=== PATIENT | male | born 1940 | race Caucasian/White ===

== ENCOUNTER 2019-01-05 19:12 | Inpatient (IN) | payer OTHER ==
[~2019-01-05] VITALS: Wt 81.5 kg
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
[~2019-01-05 19:12] MED LIST: ADULT LOW DOSE81 MG PO; ARICEPT 5 MG TAB5 MG PO; AUGMENTIN 875-1 EACH PO; EXELON1 EACH; GLUCOPHAGE500 MG PO; HYDROCHLOROTH12.5 MG PO; K-DUR 20 MEQ T20 MEQ PO; KEPPRA 500 MG500 M1 PO; LEVAQUIN 500 M500 M2 PO; LISINOPRIL10 MG PO; LOPRESSOR50 PO; LUPIN; MULTIPLE VITAM1 EAC3 PO; NAMENDA 10 MG T10 MG PO; NORCO 10-325 T1 EACH PO; OMEGA-31000 MG PO; PLENDIL2.5 MG PO; PRINIVIL20 M1 PO; TRAZODONE HCL50 MG PO; VITAMIN D1000 UNI1 PO; ZOLOFT50 MG PO
[2019-01-05 19:19] VITALS: BP 122/54
[2019-01-05] MEDS ORDERED: COLACE100 MG PO (19:54)
[2019-01-05] MEDS ORDERED: ACETAMINOPHEN500 MG PO (19:54)
[2019-01-05] MEDS ORDERED: DEPAKOTE125 MG PO (19:55)
[2019-01-05] MEDS ORDERED: FELODIPINE 5 MG5 M1 PO (19:56)
[2019-01-05] MEDS ORDERED: ALEVE220 MG PO (19:58)
[2019-01-05] MEDS ORDERED: MIRALAX17 GM PO (19:58)
[2019-01-05] MEDS ORDERED: SEROQUEL 25 MG25 M1 PO (19:59)
[2019-01-05] MEDS ORDERED: TRAZODONE HCL50 MG PO (20:02)
[2019-01-05] MEDS ORDERED: TUMS PO (20:03)
[2019-01-05] MEDS ORDERED: ZYPREXA5 MG PO (20:06)
[2019-01-05 20:14] LABS: URINE BILIRUBIN NEGATIVE (Negative); URINE BLOOD NEGATIVE (Negative); URINE CLARITY CLEAR; URINE COLOR YELLOW; URINE GLUCOSE-RANDOM* NEGATIVE (Negative); URINE KETONES NEGATIVE (Negative); URINE LEUKOCYTES-REFLEX NEGATIVE (Negative); URINE NITRITE-REFLEX NEGATIVE (Negative); URINE PROTEIN (DIPSTICK) NEGATIVE (Negative); URINE SPECIFIC GRAVITY 1.025 (1.005-1.035)
[2019-01-05 20:14] LABS: ABSOLUTE NEUTROPHILS 6.1 thou/uL (1.4-8.2); BASOPHILS 0.3 % (0.0-2.0); HEMATOCRIT 39.4 % (42.0-52.0); HEMOGLOBIN 13.1 gm/dL (14.0-18.0); LYMPHOCYTES 21.2 % (24.0-44.0); MCH 31.9 pg (26.0-34.0); MCHC 33.3 g/dL (28.0-37.0); MCV 95.9 fL (80.0-100.0); MONOCYTES 8.9 % (1.0-8.0); PLATELET COUNT 172 thou/uL (150-400); POLYS 64.6 % (36.0-66.0); RBC 4.11 mil/uL (4.50-6.00); RDW 14.3 % (10.5-14.5); WBC 9.4 thou/uL (4.0-11.0)
[2019-01-05 20:21] LABS: ANION GAP 4 mmol/L (7-16); BUN 38 mg/dL (7-18); CALCIUM 8.8 mg/dL (8.5-10.1); CHLORIDE 108 mmol/L (98-107); CO2 31 mmol/L (21-32); CREATININE 1.2 mg/dL (0.7-1.3); GLUCOSE 114 mg/dL (74-106); POTASSIUM 4.3 mmol/L (3.5-5.1); SODIUM 143 mmol/L (136-145)
[2019-01-05 20:22] LABS: AMP/METHAMP Negative (Negative); BARBITURATES Negative (Negative); BENZODIAZEPINES Negative (Negative); COCAINE Negative (Negative); METHADONE Negative (Negative); OPIATES Negative (Negative); PCP Negative (Negative)
[2019-01-05 20:27] LABS: ALBUMIN 2.7 g/dL (3.4-5.0); DIRECT BILIRUBIN < 0.1 mg/dL (<0.1-0.3); SGOT 34 U/L (15-37); SGPT 40 U/L (30-65); TOTAL BILIRUBIN 0.2 mg/dL (<0.1-1.0); TOTAL PROTEIN 6.1 g/dL (6.4-8.2)
--- NOTE | 2019-01-05 20:44 | NUR ---
CALLED SENIOR BEHAVIORAL FLOOR TO LET THEM KNOW PT HAS BEEN CLEARED MEDICALLY AND IS READY FOR HIS PSYCH EVALUATION
[2019-01-05 21:47] VITALS: BP 115/47
--- NOTE | 2019-01-06 00:08 | NUR ---
PT ADMITTED THROUGH THE ED FROM [facility], WHERE HE HAS BEEN STAYING THE LAST 3 MONTHS. PRIOR TO THAT HE HAD BEEN LIVING AT HOME WITH HIS . HE WAS DIAGNOSED WITH DEMENTIA 2010. BECAME INCREASINGLY COMBATIVE WITH AND WENT TO [facility] FOR MEDICATION ADJUSTMENT, AND THEN WAS PLACED IN MEMORY CARE. SENT TO [facility] ED BECAUSE OF COMBATIVENESS THERE. UPON ARRIVAL ON UNIT WAS GENERALLY COOPERATIVE, BUT SOME PARANOIA ABOUT BEING TOUCHED. RESPONDED TO GENTLE REDIRECTION AND HAS BEEN ASLEEP SINCE 2300.
[2019-01-06 00:28] VITALS: BP 115/47
[2019-01-06 09:16] VITALS: BP 107/62
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
--- NOTE | 2019-01-06 19:10 | NUR ---
0800 Alert, sitting up in dining room. No s/o distress. Orientated to person. 1000 Attempting to give meds without success. Pt. states he wants to go home and will not take meds without his . After 45 min of refusing, called who said to tell him it was OK and to give them one by one as I had been trying. Wrote down medications and purpose without any success. Continued to attempt until 1045 when arrived and assisted. Pt. compliant. and daughter with appropriate questions. Walking around unit without s/o distress. 1200 Ate lunch without incident. No s/o distress. Now compliant with care and meds. 1400 Compliant with physical assessment. Alert and cooperative. Orietated to self only. Unable to assess SI/HI. Keeps speaking about buying a house and selling things. Confused. Pupils equal and reactive, wax room supervisor equal. Ambulating without diff. When he was getting up from bed he stated he was dizzy that resolved in seconds. Color pink with brisk cappilary refill and strong peripheral pulses. 1545 Continues to ambulate in halls without s/o distress. Flu shot not given d/t pt refusal and asked that we check with alf as they had just ordered it for him a couple of days prior to admission. 1630 Returned to unit and patient was outside quiet room with 2 security guards and multiple staff members. IM medication had been administered d/t agitation and agression. Led into quiet room by security. Compliant and confused. Sat on bed without s/o distress. Security and staff left room and he was compliant with simple directions. Requested glass of water and drank approximately 4 oz. Within 15 min was out in dining room eating dinner without s/o distress. 1830 Taking PO meds without difficulty. Compliant with requests. Incontinent of large brown soft stool in hallway.
[2019-01-06 19:32] VITALS: BP 88/38
[2019-01-06 19:42] VITALS: BP 120/56
[2019-01-06 19:44] VITALS: BP 120/56
--- NOTE | 2019-01-06 20:56 | NUR ---
PT ASLEEP IN BED UPON ARRIVAL TO UNIT. PT DID AWAKEN, STOOD UP AND URINATED ON BEDSIDE TABLE. PT THEN RETURNED TO BED. BED ALARM ON. PT TO SEDATED FOR HS MEDS. PT ANSWERED QUESTIONS BUT DID NOT OPEN EYES.
[2019-01-07 09:32] VITALS: BP 90/52
--- NOTE | 2019-01-07 14:02 | NUR ---
YOSHI attempted to complete Psychosocial assessment with Pt, however was unable to due to Pt impaired cognition. SW attempted to contact Pt , Oksana Driscoll, on cell and home number provide. Ysohi was unable to get a hold of Oksana and left a VM for a call back.
--- NOTE | 2019-01-07 14:47 | NUR ---
0800 Sleeping soundly without s/o distress. Awakens easily, compliant with assessment. Orientated to self. Pupils equal and reactive. Traffic Maintenance Supervisor equal. Ambulates to toilet without difficulty. Required direction with brushing teeth. Denies pain, SI/HI. Color pink with brisk capillary refill and palpable peripheral pulses. +1 non pitting edema in lower extremities. Breath sounds clear t/o, bilaterally equal. Active bowel sounds over soft, flat abdomen. Skin intact. 0930 Flat affect. Sitting at table with little interaction. Compliant with AM meds. 1130 ambulating with Bill in halls. Appropriate questions and concerns. No s/o distress. 1430 Remains compliant with cares and meds. Sitting in recliner with flat affect. Arouses easily. Shaved by PAINTER AND PAPERHANGER APPRENTICE. No s/o distress.
[2019-01-07 19:25] VITALS: BP 133/65
--- NOTE | 2019-01-07 22:58 | NUR ---
PT AWAKE AND SITTING IN CHAIR IN DAY ROOM, GOOD EYE CONTACT AND SMILING WHEN TALKING WITH STAFF DURING ASSESSMENT. STATED HE TAKES GOOD CARE OF HIS HEART. COMPLIANT WTIH MEDS AND ICE CREAM. BLE EDEMA REMAINS. STEADY GAIT, PT AWAKENED TIMES ONE IN THE MIDDLE OF THE NIGHT AND ASSISTED WITH URINATION. PT COOPEREATIVE WITH ADL CARES.
[2019-01-08 02:10] LABS: GLYCOHEMOGLOBIN (HGB A1C) 5.7 % (4.8-5.6)
[2019-01-08 09:38] VITALS: BP 133/79
[2019-01-08 19:54] VITALS: BP 120/70
[2019-01-08 20:38] VITALS: BP 153/77
--- NOTE | 2019-01-08 21:52 | NUR ---
PT SMILING SITTING IN DAY ROOM, COMPLIANT WITH MEDS AND HS SNACK. STEADY GAIT, GOOD EYE CONTACT. COMPLIANT WITH ADL CARES. PT GOT UP FROM BED X 3, USED RESTROOM, AND TAKEN TO DAY ROOM SINCE NOT TIRED. PT TALKING ABOUT FIXING LIGHTS, STRIPS, TAKING SHOTS. PT TALKING WITH MALE PEER IF THEY ARE WORKING ON A CONSTRUCTION RELATED PROJECT.
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
--- NOTE | 2019-01-09 01:05 | NUR ---
PT REMAINS RESTLESS, PACING, TALKING ABOUT WORK, GOING TO EVENTS, STANDING AND SITTING, ATTEMPTING TO TRUCK DRIVER'S OFFSIDER ITEMS FROM THE FLOOR, FOLLOWING STAFF AND PEER THAT ARE AWAKE. DR MELONY PARADA AND A ONE TIME HALDOL /ATIVAN ORDER OBTAINED.
--- NOTE | 2019-01-09 04:07 | NUR ---
Pt remained awake all night in day room talking with staff, clear speech, topics difficult to follow related to tree trimming, rats, shooting. Pt restless impulsive. flu vaccine given r delt.
--- NOTE | 2019-01-09 06:12 | NUR ---
PT DID NOT SLEEP AT ALL THROUGHOUT THE NIGHT BY 0430 PT DID BECOME LESS RESTLESS, HE REMAINED SITTING IN LOUNGE CHAIR, TALKING TO SELF RE WORK PROJECTS.
--- NOTE | 2019-01-09 14:48 | NUR ---
PATIENT WAS IN THE DAYROOM WHEN CARE ASSUMED, PATIENT TOOK ALL MORNING MEDICATION CRUSHED IN [place] WITHOUT DIFFICULTY. PATIENT ATE ABOUT 75% MEALS, PATIENT ATTEMPTING TO GET OUT OF CHAIR AND AMBULATE WITHOUT ASSISTANCE, GAIT VERY UNSTEADY. PATIENT IS A VERY HIGH FALL RISK. PATIENT IS TAKING INTERMITTENT SHORT NAPS. CAN BE RESTLESS AT TIMES, IMPULSIVE BEHAVIOR NOTED. PATIENT DENIES SUICIDAL/HOMICIDAL IDEATION. PATIENT NOT COGNITIVE ENOUGH TO RESPOND APPROPRIATELY TO FURTHER ASSESSMENT QUESTIONS. PATIENT HAD BOWEL MOVEMENT TTHIS MORNING. CURRENTLY IN DAY ROOM SITTING CALMLY. NO SIGN OF ACUTE DISTRESS NOTED, WILL CONTINUE TO REDIRECT, AND MONITOR FOR SAFETY.
[2019-01-09 17:24] VITALS: BP 109/61
[2019-01-09 20:39] VITALS: BP 120/80
--- NOTE | 2019-01-09 21:30 | NUR ---
PT ASLEEP IN CHAIR IN DAY ROOM UPON ARRIVAL TO SHIFT, PT WAS AROUSABLE FOR MEDICATIONS IN ICE CREAM. PT RESISTIVE TO HS ADL CARE, GRABBING, BUT ABLE TO BE REDIRECTED. PT HAS NOSE BAUTISTA ON TOP OF NOSE FROM GLASSES.
--- NOTE | 2019-01-10 06:34 | NUR ---
Family meeting with Dr. Reza, , daughter and Brother. Discussed medications and care while here. Also discussed the need for a high level of care at a nursing facility - may be a level II candidate in order for appropriate placement. Family in agreement with plan for moving forward.
[2019-01-10 08:54] VITALS: BP 149/82
--- NOTE | 2019-01-10 17:41 | NUR ---
Sleeping soundly without s/o distress. Compliant with assessment. Obeys simple commands, programming equipment operator equal. Orientated to self. Denies pain. Stood upright but gait very unsteady. Placed in w/c to go to dining room. Breath sounds clear t/o bilaterally equal. Color pink with brisk capillary refill and strong peripheral pulses +1 edema in lower extremities. Active bowel sounds over soft, flat abdomen. 1200 Sitting in dining room with eyes closed. Obeys simple commands. called to check on him. Ate 100% of lunch but needed to be fed. Brought to room to urinate, becoming combative so brought back to dining room. Continues to sit motionless with eyes closed at table. 1400 Ambulated to bathroom with assistance and direction. Medium brown stool per toilet with urine. Ambulated back to dining room. 1800 Up ambulating in halls. Gait sometimes slightly unsteady. Displaying more motion and some verbalizations. No s/o distress.
[2019-01-10 19:49] VITALS: BP 120/67
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
[2019-01-11 08:00] VITALS: BP 98/53
--- NOTE | 2019-01-11 08:00 | NUR ---
PT UP STANDING BY NURSES DESK. NIGHT NURSE STATED HE IS UNSTABLE WITH AMBULATION. PT WALKING AROUND UNIT, PT EYES HALF CLOSED. PT LOOKS TIRED. LUNGS CLEAR. PT STATED HE WAS AT [employer], DIDN'T KNOW MONTH, STATED IT LOOKS LIKE MICE. PT STAED HE WORKED AT [employer]. PT HALLUCINATING SEEING SUIT CASE, IT WAS A W/C. PT HAS SCABS TO ARMS.
[2019-01-11 09:23] VITALS: BP 98/53
--- NOTE | 2019-01-11 12:09 | NUR ---
PT HAS BEEN SLEEPING SINCE AFTER BREAFAST. PT SITTING IN CHAIR AND SHAKES HANDS AND ARMS AT PERIODS OF TIME. PT SITING IN CHAIR WITH EYES CLOSED. PT DIDN'T WANT TO WAKE UP FOR LUNCH.
--- NOTE | 2019-01-11 14:27 | NUR ---
WENT TO GIVE 1400 MED. PT ASLEEP IN BED.
[2019-01-11 19:31] VITALS: BP 126/65
--- NOTE | 2019-01-11 19:43 | NUR ---
assumed care of the pt at 1914 pm. alert et oriented x 2. the pt was in bed when this short story writer came on duty. heart rate regular. lungs clear bilaterally, +bs heard in all 4 quadrants. denies si/hi, anxiety and depression. denies racing thoughts and nightmares. remains on 12 minute checks for the pt's safety.
--- NOTE | 2019-01-12 04:00 | NUR ---
THE PT APPEARS TO BE SLEEPING AT THIS TIME. RESP., EVEN, AND UNLABORED. REMAINS ON 12 MINUTE CHECKS FOR HIS SAFETY.
--- NOTE | 2019-01-12 05:52 | NUR ---
THE PT SLEPT 8.4 HOURS LAST NIGHT.
[2019-01-12 10:49] VITALS: BP 113/60
--- NOTE | 2019-01-12 11:28 | NUR ---
PATIENT WAS AGITATED THIS MORNING. TOOK BREAKFAST TRAY AND REFUSED TO GIVE UP TO STAFF OR REDIRECT TO TABLE TO SIT DOWN. PATIENT NEEDED ALOT OF ENCOURAGEMENT TO GET HER TO SIT DOWN AND EAT. ONCE SITTING DOWN HE REFUSED TO EAT ANYTHING. ATTEMPTED NUMEROUS TIMES TO ADMINISTER MEDICATIONS IN APPLESAUCE AND REFUSED. NOT RESPONSIVE TO REDIRECTIONS AND STARED AT YOU BLANKLY WHEN QUESTIONED. SAT THROUGH GROUPS BUT STARED BLANKLY AND DID NOT PARTICIPATE. WILL CONTINUE TO ENCOURAGE MEAL AND MEDICATION COMPLIANCE FOR LUNCH AND DINNER.
--- NOTE | 2019-01-12 14:28 | NUR ---
Date of Admission: 01/05/19 Date of Activity Therapy Assessment: 01/08/19 Activity Goal: Increase reality orientation Initial Goal: 1 Group activity/day Weekly progress towards goal: Did not achieve goals Group participation level: None Behaviors observed: Patient is uncooperative and has not participated in group to date. He has sat on the outskirts at times, but does not actively engage. Plan: No change towards goal
[2019-01-12 19:16] VITALS: BP 111/59
[2019-01-12 19:36] VITALS: BP 145/69
--- NOTE | 2019-01-12 22:22 | NUR ---
ASSUMED CARE OF THE PT AT 1915 PM. THE PT WAS UP AND ABOUT THE WHOLE UNIT, SITTING IN THE DAYROOM WATCHING TV. ALERT ET ORIENTED X 2-3. WALKS WITH A SLOW STEADY GAIT. TOOK HIS HS MEDICATIONS WITHOUT ANY DIFFICULTY, HE TAKES HIS MEDICATION ONE AT A TIME WITH ORANGE JUICE. DENIES ANXIETY OR DEPRESSION. DENIES SI/HI. THE PT WALKED AROUND THE UNIT PACING PRIOR TO GOING TO BED. HEART RATE REGULAR, LUNGS CLEAR BILATERALLY, RESP., EVEN, AND UNLABORED. +BS HEARD IN ALL 4 QUADRANTS. +PP BILATERALLY. REMAINS ON 12 MINUTE CHECKS FOR HIS SAFETY.
--- NOTE | 2019-01-13 04:19 | NUR ---
THE PT GOT UP X 2 THIS NOC SHIFT, AND VOIDED IN THE BATHROOM EACH TIME. REMAINS ON 12 MINUTE CHECKS FOR HIS SAFETY.
[2019-01-13 09:31] VITALS: BP 120/66
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
--- NOTE | 2019-01-13 12:21 | NUR ---
YOSHI spoke with jaren HERNADEZ), and completed the [facility] intake , and that she would be available for a family meeting next week in the AM. She would be including pt's brother and sister and would call YOSHI with a date and time. She does expect this pt to return to [facility]. YOSHI will send updates
--- NOTE | 2019-01-13 15:10 | NUR ---
YOSHI called [facility] [phone] and left a VM to report that this pt would be ready to D/C on Tuesday. Will send updates to [phone] on Tuesday PM.
[2019-01-13 20:25] VITALS: BP 124/61
--- NOTE | 2019-01-13 23:36 | NUR ---
ASSUMED CARE OF PATIENT AT 1915, PATIENT WAS IRRITABLE AND DEMANDING AT THE NURSES STATION DURING REPORT, DEMANDING THAT STAFF PAY ATTENTION TO HIM IMMEDIATELY, STATING 'YOU ALL WONT HAVE ANY PAYCHECKS AND YOU BETTER PAY ATTENTION TO ME.' NURSING STAFF REDIRECTED PATIENT SUCCESSFULLY. THROUGHOUT THE EVENING HE NEEDED PROMPTS TO COMPLETE ADLS AND EAT A SNACK. EARLIER IN THE EVENING PATIENT URINATED ON THE FLOOR STATING 'IM JUST USING THE BATHROOM.' THIS NURSE REORIENTED PATIENT TO BATHROOM IN HIS ROOM. THIS NURSE COMPLETED ROUNDING AT APPROXIMATELY 2325 AND FOUND PATIENT IN BED WITH HIS ROOMMATE, THIS NURSE IMMEDIATELY ASSISTED PATIENT TO PROPER BED. HE DID NOT REPORT AND SUICIDAL THOUGHTS OR HOMICIDAL THOUGHTS, NO PHYSICAL AGGRESSION OBSERVED. HE DID NOT APPEAR TO BE IN ANY MEDICAL DISTRESS. NURSING WILL MAINTAIN ALL PRECAUTIONS TO ENSURE SAFETY AT ALL TIMES.
[2019-01-14 07:00] VITALS: BP 128/70
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
[2019-01-14 19:57] VITALS: BP 113/74
--- NOTE | 2019-01-14 21:50 | NUR ---
Care assumed of patient at 1915: Patient wandering about the hallway and patient rooms at start of shift. Patient alert and oriented to person only. Confused and forgetful. Patient took HS medication crushed this PM. Declined HS snack. Patient incontinent of bladder. Resistive to toileting hygiene but was not verbally or physically aggressive. Patient was able to retire to bed rather early without difficulty. No s/s of pain or discomfort observed. Patient was discussing concern about the wagon and that the wheels are rusted. Patient talking about the factory and needing to get enough supplies for the morning. Patient clearly delusional. Patient leaning over and picking at the floor, torres, siderails. Nothing visible to staff. Patient appears to be resting well at this time.
[2019-01-15 07:47] VITALS: BP 118/66
[2019-01-15 08:00] VITALS: BP 118/66
--- NOTE | 2019-01-15 08:18 | NUR ---
PT SLEEPING, EASILY AROUSED. PT DIDN'T WANT TO EAT BREAKFAST. PT DID HAVE FEW DRINKS OF HEALTH SHAKE. PT TOOK HALF OF MEDS CRUSHED, PT ABLE TO OPEN MOUTH FIRST TIME FOR MEDS, THEN STATED THATS ENOUGH. PT DID TAKE A FEW SMALL BITS OF MEDS. PT HAS EYES CLOSED. NO AGGRESSION SEEN WITH PROMPTING TO TAKE MEDS.
--- NOTE | 2019-01-15 08:54 | EKG ---
[address] [address] ELECTROCARDIOGRAM REPORT Name: DOT REBOLLEDO Room #: 518A-A ADM IN M.R.#: [id number] Admission: 01/05/19 Attend Phys: Juan Ramon Roman MD Discharge: Date of : 38 Report #: [id number] THIS REPORT FOR: //name// [facility] Test Date: 2019-01-14 Test Time: 16:04:36 Pat Name: DOT REBOLLEDO Department: Room: [facility] A Gender: M Director Of Development And Marketing: catia : 1940 Requested By: Johann Reza Order Number: [id number] MD: Robbin Sutherland Measurements Intervals Wana Rate: 67 P: GA: 142 QRS: 6 QRSD: 134 T: 56 QT: 441 QTc: 466 Interpretive Statements Atrial-paced rhythm Incomplete right bundle branch block No previous ECG available for comparison Electronically Signed On 01-15-2019 8:54:38 CDT by Robbin Sutherland [email or web address] <ELECTRONICALLY SIGNED> By: Robbin Sutherland MD, [facility] 01/15/19 0854 [id number] Robbin Sutherland MD, FACC /EPI
--- NOTE | 2019-01-15 14:30 | NUR ---
PT RESTING MOST OF DAY. PT DID GET UP TO WALK OVER TO RECLINER CHAIR THEN COUCH. PT STATED HE WANTED A PILLOW.
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
[2019-01-15 19:41] VITALS: BP 99/50
--- NOTE | 2019-01-16 02:14 | NUR ---
ASSUMED CARE OF PATIENT AT 1915January. PATIENT HAS BEEN IN THE DAY ROOM WITH EYES CLOSED IN A RECLINER THE MAJORITY OF THE EVENING. HE APPEARS WITH A TIRE AFFECT, BUT IS CALM AND COOPERATIVE AND SPONTANEOUSLY OPENS EYES TO THIS NURSE. HE APPEARS TO HAVE A SOMEWHAT UNSTEADY GAIT, NURSING STAFF SUPERVISED PATIENT WHILE AMBULATING. HE DOES NOT APPEAR TO BE IN DISTRESS, NOR DID PATIENT REPORT SI HI, ANY OVERT DELUSIONAL THOUGHTS, NOR S/S OF HALLUCINATIONS. HE DOES NOT APPEAR TO BE IN MEDICAL DISTRESS. NURSING WILL MAINTAIN ALL PRECAUTIONS TO ENSURE SAFETY AT ALL TIMES.
[2019-01-16 08:53] VITALS: BP 108/54
[2019-01-16 09:09] VITALS: BP 144/92
[2019-01-16 09:10] VITALS: BP 129/82
--- NOTE | 2019-01-16 15:11 | NUR ---
YOSHI called and spoke with pt's dght and confirmed that she would be discharging tonight at 4;30pm. YOSHI set up taxi for pickling operator. Reported this to nurse and Dr Reza. YOSHI also called DR Fletcher's office to confirm that she had a f/u appointment and had to leave a VM. This was also reported to pt.
--- NOTE | 2019-01-16 16:06 | NUR ---
Sleeping this AM without s/o distress. Able to ambulate to dining room without diff. Orientated to self but not to place, time or situation. Denies pain, SI. Able to perform AM cares with direction. Color pink with brisk capillary refill. +1 pedal edema. Reg HR auscultated. Breath sounds clear t/o, bilaterally equal. Active bowel sounds over soft, flat abdomen. Very sleepy after am meds. In recliner with blanket on him. and friend here visiting. Appropriate questions and concerns. wants to make appt with manager social this week. Msg given. 1600 Slept most of afternoon. Compliant with meds. Up ambulating in halls. Affect remains flat with some rambling speech. No s/o distress.
[2019-01-16 20:15] VITALS: BP 148/72
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
[2019-01-17 07:30] VITALS: BP 95/68
--- NOTE | 2019-01-17 08:21 | NUR ---
PT UP WALKING AROUND IN THE UNIT THIS AM. PT SITTING EATING BREAFAST. PT TOOK SOME PO MEDS. PT STATED THAT THE DEPAKOTE PILLS WAS TOO MUCH. PT REFUSED 1/2 OF DEPAKOTE PILLS. THIS NUT STEAMER OPENED SPRINKLES AND PUT IN ICE CREAM, PT TOOK ONE BITE AND STATED THAT HE WAS DONE.
--- NOTE | 2019-01-17 09:00 | NUR ---
PT TALKING ABOUT NEEDING HIS KEYS SO HE CAN DRIVE. PT KEEPS ASKING ABOUT HIS KEYS AND WERE ARE THEY, THIS IS WHEN PT GETS MORE DEMANDING TO FIND HIS KEYS.
--- NOTE | 2019-01-17 09:11 | NUR ---
OFFERED PT HALDOL PO AND PT REFUSED. PT STATED HE DIDN'T NEED IT AND HE WOULD TAKE IT IF HE NEEDED IT.
--- NOTE | 2019-01-17 09:11 | NUR ---
ADM HALDOL 6MG IM TO RT ARM. PT ASSISTED TO SITTING IN CHAIR AND DIDN'T RESIST SHOT.
--- NOTE | 2019-01-17 11:15 | NUR ---
PT UP WALKING OVER TO OTHER RESIDENTS. PT TRIED TO PUT FOOT UP ON ON'S LAP. PT DIDN'T HAVE BOUNDRY OF SPACE WITH OTHER RESIDENTS. GAVE PT SOME WATER AND ASSISTED PT TO COUCH.
--- NOTE | 2019-01-17 11:44 | NUR ---
PT HERE VISITING, PT SITTING QUIETLY WITH HER ON COUCH.
--- NOTE | 2019-01-17 17:14 | NUR ---
PT STILL APPEARS SLEEPY. PT EATING A LITTLE OF DINNER.
[2019-01-17 20:05] VITALS: BP 103/53
--- NOTE | 2019-01-17 23:32 | NUR ---
ASSUMED CARE @ 19:15 ON 01/17/19. LYING IN BED, EYES CLOSED, RESPIRATIONS EVEN AND UNLABORED. AWAKENED @ 20:30 AND TOILETED, MEDICATIONS GIVEN CRUSHED IN PUDDING, DEPAKOTE SPRINKLES OPENED AND MIXED IN PUDDING. RETURNED TO SLEEP. WILL CONTINUE TO MONITOR Q 12 MINUTES FOR PT SAFETY.
[2019-01-17 23:37] VITALS: BP 103/53
--- NOTE | 2019-01-18 06:01 | NUR ---
slept 10.8 hours overnight.
[2019-01-18 08:52] VITALS: BP 96/54
--- NOTE | 2019-01-18 13:30 | NUR ---
PATIENT REMAIN VERY CONFUSED, UP AND OUT ON THE UNIT, HE WANDERS. PATIENT TOOK ALL MEDICATION CRUSHED IN PUDDING THIS MORNING. HE IS EATING MEALS AND DRINKING FLUID WELL WITH CUE FROM STAFF. PATIENT DENIES SUICIDAL AND HOMICIDAL IDEATION. PATIENT IS NOT ABLE TO RESPOND APPRORIATELY TO FURTHER ASSESSMENT QUESTIONS DUE TO COGNITIVE IMPAIRMENT. PATIENT HAS BEEN CALM, COOPERATIVE WITH CARE. NO AGITATION, AGGRESSIVE BEHAVIOR NOTED, WILL MONITOR FOR SAFETY.
--- NOTE | 2019-01-18 14:09 | NUR ---
Date of Admission: 01/05/19 Date of Activity Therapy Assessment: 01/08/19 Activity Goal: Increase reality orientation and engagement Initial Goal: 1 Group activity/day Weekly progress towards goal: Did not achieve goals Group participation level: None Behaviors observed: Showing no change. Patient is uncooperative and has not participated in group to date. He has sat on the outskirts at times, but does not actively engage. Plan: No change towards goal. Offer 1:1 as tolerated.
--- NOTE | 2019-01-18 15:29 | NUR ---
YOSHI met with family and Dr Reza for a family meeting. Pt will likely d/c to [facility] on 01/22 or 01/23
[2019-01-18 20:00] VITALS: BP 105/54
--- NOTE | 2019-01-19 02:18 | NUR ---
ASSESSMENT: PT REMAIN ALERT TO SELF. PACING AROUND THE DAY ROOM WITHOUT PURPOSE. TOOK MEDS WELL CRUSHED IN ICE CREAM. DID NOT C/O PAIN. VSS, AFEBRILE. METOPROLOL WAS HELD PER PERIMETERS. TRAZODONE PRN GIVEN. SLOW PROGRESS TOWARDS DC GOALS, WILL CONTINUE TO MONITOR.
[2019-01-19 08:10] VITALS: BP 137/69
--- NOTE | 2019-01-19 15:53 | NUR ---
YOSHI sent updates to [facility]
--- NOTE | 2019-01-19 16:43 | NUR ---
HAS BEEN DROWSY MOST OF SHIFT-WILL HAVE OCCASSIONAL BRIEF EPISODES OF RESTLESSNESS,INCREASED CONFUSION AND PACING BUT IS REDIRECTABLE. GAIT SLOW/STEADY.SPEECH SLIGHLTY SLURRED. ORIENTED TO NAME ONLY STATING THIS LOCATION IS "HOUSE" AND UNABLE TO IDENITFY PREVIOUS EMPLOYMENT OR PROFESSION. VERBAL RESPONSES ARE BRIEF ABRUPT-DYSPHORIC,IRRITABLE MOOD. DENIES SI/SH. DID APPEAR UNKEMPT AT START OF SHIFT-CLOTHING SOILED,UNSHAVEN. DID ALLOW CLOTHING CHANGE AND SHAVE WITHOUT RESISTANCE. TAKES MEDS CRUSHED DENIES C/O PAIN/DISCOMFORT
--- NOTE | 2019-01-19 23:16 | NUR ---
ASSUMED CARE@ 19:15 ON 01/19/19, BECAME AGITATED AND PUSHED A PEER IN THE DAY ROOM. ORDER OBTAINED FOR ONE TIME STAT ORDER FOR HALOPERIDOL LACTATE 5 MG IM AND LORAZEPAM 1MG IM, BOTH GIVEN @19:11, ISOLATION ORDER OBTAINED AND PATIENT ISOLATED FOR APROXIMATELY 54 MINUTES, BEGINNING @ 19:10 UNTIL HE NO LONGER EXHIBITED VIOLENT BEHAVIOR, RETURNED TO HIS ROOM @ 20:06. HE SLEPT IN BED FOR SEVERAL HOURS, AND AMBULATED TO THE DAY ROOM X2 ASSIST WHERE HE SAT UP AND IS IN THE DAY ROOM AT THIS WRITING. WILL CONTINUE TO MONITOR Q 12 MINUTES FOR PATIENT SAFETY.
[2019-01-20 07:10] VITALS: BP 129/76
--- NOTE | 2019-01-20 07:20 | NUR ---
slept 2.6 hours overnight
[2019-01-20 08:30] VITALS: BP 129/76
--- NOTE | 2019-01-20 08:30 | NUR ---
PT NEEDED ASSIST WITH FEEDING. PT DIDN'T EAT MUCH FOR BREAFAST. PT DRANK 1/2 OF SHAKE. PT TOOK MEDS WHOLE THIS AM. PT LUNGS CLEAR. PT NOT AGGRESSIVE THIS AM.
--- NOTE | 2019-01-20 16:30 | NUR ---
PT HERE AND WANTING TO KNOW HOW HIS DAY WAS AND LAST TIME HE GOT AN INJECTION. PT NEEDING HELP WITH FEEDING AND DRINKING. PT SITTING MOSTLY TODAY WITH EYES CLOSED, WOULD OPEN WITH VERBAL STIMULATION.
--- NOTE | 2019-01-20 18:15 | NUR ---
ADM SEROQUEL 50MG PO X1 TIME.
[2019-01-20 19:45] VITALS: BP 102/51
--- NOTE | 2019-01-21 00:57 | NUR ---
ASSUMED CARE @ 19:15 ON 01/20/19. SITTING IN HIS W/C IN THE DAY ROOM WITH LAP ERIN AROUND WAIST. PT HAS EYES CLOSED, DOES NOT OPEN EYES, EVEN WHEN BEING SPOKEN TO AND RESPONDING. TAKES HS MEDS CRUSHED IN PUDDING. GIVEN PRN TYLENOL 650 FOR GENERAL PAIN AND TRAZADONE HCL 100 MG FOR SLEEP. PT PUT TO BED @ 21:30 X3 ASSIST. PT IS ASLEEP WITH EYES CLSOED, RESPIRATIONS EVEN AND UNLABORED. WILL CONTINUE TO MONITOR Q 12 MINUTES FOR PATIENT SAFETY.
--- NOTE | 2019-01-21 05:25 | NUR ---
SLEPT 7 HOURS OVERNIGHT.
[2019-01-21 07:37] VITALS: BP 117/66
[2019-01-21 10:01] VITALS: BP 132/65
--- NOTE | 2019-01-21 12:07 | NUR ---
ASSUMED CARE AT 0700 THIS MORNING. PT. SITTING ON THE UNIT WITH HIS EYES CLOSED. HE WOULD NOT WAKE UP TO TALK WITH STAFF. HE REFUSED TO OPEN HIS EYES OR HIS MOUTH AT BREAKFAST. HE DID NOT EAT BREAKFAST, THEREFORE. MEDS GIVEN CRUSHED AND IN ICE CREAM. HE DID NOT AWAKEN FOR MORNING GROUP. HIS VISITED AND WANTED AN UPDATE FOR THE PT. SHE WAS PROVIDED WITH THIS. AT LUNCH HE ATE A FEW BITES, BUT CONTINUED WITH EYES CLOSED, NOT RESPONDING TO STAFF.
[2019-01-21 19:43] VITALS: BP 126/44
--- NOTE | 2019-01-21 21:52 | NUR ---
PT ASLEEP IN W/C, CHAIR ALARM IN DAY ROOM AT BEGINNING OF SHIFT. PT COMPLIANT WTIH HS MEDS AND HS SNACK. PT RESISTIVE WITH ADL CARE AND TRANSFER, HTTING GRABBING KICKING. TENSE AFFECT EYES SHUT WHEN TALKING WITH STAFF AND DURING MED PASS AND ADL CARES. PT HAD BM.
[2019-01-22 09:20] VITALS: BP 122/65
[2019-01-22 19:15] VITALS: BP 115/92
--- NOTE | 2019-01-22 19:16 | NUR ---
RESTLESS AND AGITATED THROUGHOUT SHIFT, REFUSED TO GET UP FOR BREAKFAST AND WAS COMBATIVE WITH STAFF WITH ATTEMPTS-DID TAKE SNACK/SUPPLEMENTS AND AM MEDS AT APPROX 100 AND AMBULATED TO DAYROOM WITH ASSIST 2 STAFF GAIT VERY ATAXIC AND HAD SEVERAL NEAR FALLS. INCONTINENT OF BLADDER AT APPROX 1500-COMBATIVE WITH ATTEMPTS TO CHANGE BRIEF-REQUIRES SECURITY AND 4 STAFF TO CHANGE-GEODON 15MG IM GIVEN AT APPROX 1530. REMAINS COMBATIVE AND UNCOOPERATIVE-SPITTING OUT MEDS AND FLUIDS WHEN OFFERED.
--- NOTE | 2019-01-22 21:53 | NUR ---
PT IN W/C LAP BELT AND CHAIR ALARM IN DAY ROOM UPON ARRIVAL TO SHIFT. PT HAS EYES CLOSED AND IS PICKING AT THE AIR AND AT W/C. FLAT AFFECT, VERBALIZATIONS TO SELF ARE MUMBLED. PT IS LETHARGIC, TWO PERSON ASSIST WITH TRANSFER OUT OF W/C TO BED. INCONTINENT. COMPLIANT [facility] HS MEDS AND SNACK.
--- NOTE | 2019-01-23 06:00 | NUR ---
PT RESTLESS, RESISTIVE TO INCONTINENCE CARE AND ADL CARE. PT GRABBING AND ATTEMPTING TO STAND BUT NOT ABLE TO BEAR HIS OWN WEIGHT. WHEN IN W/C PT RUNNING HIS W/C INTO TABLES AND CHAIRS. PT NOT ABLE TO BE ENGAGED IN DISTRACTING CONVERSATION OR ACTIVITIES. PRN IM GIVEN.
[2019-01-23 09:01] VITALS: BP 116/52
--- NOTE | 2019-01-23 10:55 | NUR ---
Followup: KUB was cancelled. Will follow up again on 01/26
--- NOTE | 2019-01-23 11:41 | NUR ---
0702 report received from overnight shift, patient did not eat very much, trouble taking medication was spitting some out of his medication. patient had loose stools aweful smell. We had to call security for help to get patient cleaned up due to him being combative hitting and kicking. Patient had visit from who gave him 2 apple juice, i asked her not to give him anything else without consulting nursing staff.
--- NOTE | 2019-01-23 16:30 | NUR ---
LILIYA and Dr Reza spoke with pt's dght and KELVIN. Disucssed the plan of care and cnoncerns about nutrition and weight loss. The conclusion is that hospice will be ordered for eval and treat when he d/c to [facility]. Liliya sent this referral to [facility] per [facility] recomendations.
[2019-01-23 21:08] VITALS: BP 125/98
--- NOTE | 2019-01-24 00:31 | NUR ---
ASSUMED CARE OF PATIENT AT APPROXIMATELY 1915 ON 01/23/19. THIS NURSE HAD VERY LITTLE INTERACTION WITH PATIENT PATIENT ISOLATES HIMSELF IN THE MILIEU AND WAS OBSERVED ON THE PERIPHERY. HE DID GO TO HIS BED EARLY IN THE EVENING, WHEN PASSING MEDICATION TO PATIENT HE HAD EYES CLOSED, AND WOULD ROLL IN BED TO MY VOICE BUT WOULD NOT OPEN EYES NOR ACKNOWLEDGE THIS NURSE. HE DID NOT REPORT SI HI THOUGHTS NOR DOES IT APPEAR HE WAS RESPONDING TO INTERNAL STIMULI. HE DOES NOT APPEAR TO BE IN DISTRESS. RR EQUAL AND UNLABORED. NURSING WILL MAINTAIN ALL PRECAUTIONS TO ENSURE SAFETY AT ALL TIMES.
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
[2019-01-24 08:55] VITALS: BP 106/59
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
[2019-01-24 12:02] LABS: ABSOLUTE NEUTROPHILS 8.2 thou/uL (1.4-8.2); BASOPHILS 0.4 % (0.0-2.0); EOSINOPHILS 1.1 % (0.0-3.0); HEMATOCRIT 44.6 % (42.0-52.0); HEMOGLOBIN 14.8 gm/dL (14.0-18.0); LYMPHOCYTES 12.3 % (24.0-44.0); MCH 31.9 pg (26.0-34.0); MCHC 33.2 g/dL (28.0-37.0); MCV 96.1 fL (80.0-100.0); MONOCYTES 11.2 % (1.0-8.0); PLATELET COUNT 122 thou/uL (150-400); RBC 4.64 mil/uL (4.50-6.00); RDW 14.3 % (10.5-14.5)
[2019-01-24 12:17] LABS: CALCIUM 9.3 mg/dL (8.5-10.1); CREATININE 1.2 mg/dL (0.7-1.3); POTASSIUM 3.8 mmol/L (3.5-5.1)
--- NOTE | 2019-01-24 18:15 | NUR ---
1805 Patient was strait cathed twice without sucess, patient then had to urinate and we collected in a sterile urinal. Patient had test to rule out infection. Dr Jaquez Present for procedures. Patient resting calm quiet.
[2019-01-24 18:21] LABS: URINE BILIRUBIN NEGATIVE (Negative); URINE BLOOD 3+ (Negative); URINE CLARITY CLEAR; URINE COLOR YELLOW; URINE GLUCOSE-RANDOM* NEGATIVE (Negative); URINE KETONES 1+ (Negative); URINE LEUKOCYTES-REFLEX NEGATIVE (Negative); URINE NITRITE-REFLEX NEGATIVE (Negative); URINE PROTEIN (DIPSTICK) NEGATIVE (Negative); URINE SPECIFIC GRAVITY 1.025 (1.005-1.035)
[2019-01-24 18:36] LABS: BACTERIA-REFLEX 1-9 Few /HPF (None Seen); CASTS None Seen /LPF (None Seen); CRYSTALS None Seen /LPF (None Seen); SQUAMOUS 0-3 Few /LPF (0-3); URINE RBC >20 Many /HPF (0-2); URINE WBC-REFLEX 0-5 Rare /HPF (0-5)
[2019-01-24 20:18] VITALS: BP 126/65
--- NOTE | 2019-01-24 22:22 | NUR ---
PT IN ROOM SLEEPING AT BEGINNING OF SHIFT. 2100 SCHEDULED MEDS NOT GIVEN BECAUSE PT IS SLEEPING. HISTORY OF HAVING DIFFICULTY SLEEPING. WILL ATTEMPT TO PROVIDE MEDICATION NEEDED IF PT AWAKENS AND DEMONSTRATES THAT HE NEEDS NEDS.
--- NOTE | 2019-01-25 03:11 | NUR ---
PT CONTINUES TO SLEEP W/O PROBLEM TO THIS POINT IN THE MORNING.
[2019-01-25 07:49] VITALS: BP 126/73
--- NOTE | 2019-01-25 11:50 | NUR ---
ATTEMPTING SEVERAL TIMES THIS AM TO GET OUT OF LAP ERIN-TWICE IN APPROX 30 MINUTES HAD SLID MELISSA DOWN IN CHAIR SO THAT LAP ERIN WAS AROUND UPPER CHEST/NECK AREA-SCREAMING HELP HELP-PLACED IN GERICHAIR AND REPOSITIONED SEVERAL TIMES FOR COMFORT BUT CONTINUES TO SLIDE IN CHAIR ALMOST ENDING UP ON FLOOR X2-GEODON 15 MG GIVEN IM FOR ABOVE-DID TAKE 2 BITES OF MEDS CRUSHED IN PUDDING BEFORE SPITTING OUT OR LETTING RUN DOWN FACE. MD ON UNIT AND ORDERS RECEIVED FOR 1;1-DC LAP ERIN UNSAFE AND CREATING INCREASED AGITATION. NURSING HOOP PUNCH AND COILER OPERATOR NOTIFIED OF ABOVE. WHEN PT OUT OF LAP ERIN IS NOTED TO HAVE RETROPULSION SEVERE.VERY ATAXIC UNABLE TO WALK ON OWN-DOES AMBULATE SHORT DISTANCES IN HALLWAY WITH SBA X1
--- NOTE | 2019-01-25 14:28 | NUR ---
BECAME SEXUALLY INAPPROPRIATE WITH PET THERAPY VOLENTEER TOUCHING AND ATTEMPTING TO RUB HER CHEST AND BACK-WHEN SHE MOVED AWAY WAS FOLLOWING HER AND BECAME VERY THREATNING AND AGITATED-ATTEMPTING TO HIT STAFF WHEN ATTEMPTED TO REDIRECT. SECURITY CONTACTED-WALKED TO ROOM WILLINGLY AND GIVEN GEODON 15MG IM IN LEFT GLUTEAL AREA
[2019-01-25 14:44] VITALS: BP 154/106; BP 179/108
[2019-01-25 19:30] VITALS: BP 121/61
--- NOTE | 2019-01-25 23:38 | NUR ---
Care assumed of patient at 1915: Patient alert and oriented to person only. Patient confused and forgetful. Patient up ad shashi with no assistive devices. Patient ambulating about the unit. Patient primarily was able to stay in the day room with staff. Took HS medication without difficulty. Drank 240cc water with encouragement. Ate 100% HS snack, fed by staff. Patient calm and cooperative this evening. Patient believes that nurse is his mother. Appears happy and very appreciative of care provided. Patient visualized trying to comfort and communicate with other peers. Very appropriate this evening. Patient was assisted to bed without difficulty. Patient did wake up after laying in bed and was hollering for Ed. Nurse checked on patient when he stated he needed Ed to go to the bathroom. Nurse assisted patient to the bathroom, continent of bladder. Patient assisted back to bed and was able to fall asleep without difficulty. No aggression or agitation observed.
[2019-01-26 07:00] VITALS: BP 117/50
--- NOTE | 2019-01-26 10:59 | NUR ---
ASSUMED CARE AT 1900 - PATIENT UP AND RESTLESS. EXTREMELY CONFUSED. ASSOCIATES SURROUNDINGS WITH WORK AND HE IS IN CHARGE OF EVENTS ON FLOOR. PATIENT WANDERS AROUND AND ATTEMPTS TO ENGAGE WITH PEERS. EASILY IRRITATED WHEN REDIRECTED AND NEED TO FEED INTO HIS CONCERNS IN ORDER TO HAVE HIM BE COMPLIANT WITH ANYTHING. TOOK HIS MEDICATIONS WITH PUDDING - SLOWLY - BUT COMPLIANT - FAMILY ( ) VISITED THIS MORNING. PATIENT AFFECT BRIGHT AT TIMES IF HE RESPONDS TO WHAT IS SAID TO HIM. CURRENTLY IN DINING AREA.
--- NOTE | 2019-01-26 14:49 | NUR ---
Date of Admission: 01/05/19 Date of Activity Therapy Assessment: 01/08/19 Activity Goal: Increase reality orientation and engagement Initial Goal: 1 Group activity/day Weekly progress towards goal: Did not achieve goals Group participation level: None Behaviors observed: Patient continues to show no change, though he has shown an increase in alertness over the past 2 days. This has resulted in patient ambulating unit and interfering with other patients personal boundaries. Patient has also exhibited some demanding and aggressive behavior. Continues to not tolerate groups. Plan: No change towards goal
[2019-01-26 23:02] VITALS: BP 131/57
--- NOTE | 2019-01-27 04:57 | NUR ---
1909-Report received from day shift nurse and care assumed. Pedro was polite this shift thus far, said thank you often when assisting him. He urinated a few times in the night setting his bed alarm off each time when he got up from sleeping and wanted to either start to urinate on the floor beside his bed, or staff most times encouraged him and walked with him to the bathroom to do so, in the toilet. He said thank you and with staff stand by returned to sleep soundly. He was noted snoring softly. He was medication compliant with medicines crush (or opened, such as sprinkles) mixied in yogurt which he liked. He was in the day room at shift start then was sleepy and walked to his room and bed alarm set.
[2019-01-27 09:12] VITALS: BP 114/66
--- NOTE | 2019-01-27 10:24 | NUR ---
0702 Report received from overnight shift, Patient calm this morning ate 30% of breakfast took medication in yogart. Patient cooperative sitting in the day room subdued.
[2019-01-27 10:49] LABS: CALCIUM 9.2 mg/dL (8.5-10.1); CREATININE 1.1 mg/dL (0.7-1.3)
--- NOTE | 2019-01-27 11:51 | NUR ---
LILIYA called and spoke with [facility] for [facility] , and sent the referral inlcuding the orders. Liliya also completed the DA 124 abc for a level II and SAC, will submit that tuesday. LILIYA also sent updates to [facility].
[2019-01-27 20:00] VITALS: BP 127/67
--- NOTE | 2019-01-28 00:40 | NUR ---
PATIENT HAS BEEN TO BED WHEN CAME ON SHIFT AT 1900. HE HAS AWOKEN CONFUSED X2. HE HAS BEEN UP TO THE BATHROOM AND VOIDED TWICE. HE IS REDIRECTABLE. HE HAS AN OLD SKIN TEAR ON HIS ARM THAT IS WRAPPED. HE DID NOT WANT IT MESSED WITH. PATIENT TOOK HIS HS MEDS WITH YOGURT. HE CONTINUES TO SLEEP. HE IS A/O X 1. BED ALARM ON AND BED IN LOW POSITION.
--- NOTE | 2019-01-28 10:23 | NUR ---
0700 Report received from overnight shift, Patient cooperative up walking around. Patient had a good might no aggression. patient ate breakfast had to do some talking to him for him to take his medication. Patient sat and was talking to social media marketing specialist.
[2019-01-28 12:50] VITALS: BP 107/44
--- NOTE | 2019-01-28 14:30 | NUR ---
YOSHI sent updates to [facility]
[2019-01-28 19:52] VITALS: BP 129/44
--- NOTE | 2019-01-28 23:44 | NUR ---
PATIENT JUST WENT TO BED. PATIENT HAS BEEN SITTING UP IN WC AT A TABLE IN DINING ROOM TONITE. HIS MIND IS BUSY. HE TALKS SHOP BUT UNABLE TO CLARIFY WHAT HE IS WANTING DONE. PATIENT WORKED WITH HIS HANDS WITH THE BUSY BLANKET SOME, BUT MAINLY JUST WANTED TO TALK AND GIVE DIRECTIONS TO OTHERS WITH WHATEVER PROJECT HE WAS WORKING ON IN HIS MIND. PATIENT SLEEPING AT THIS TIME. BED ALARM ON AND BED IN LOW POSITION. CONTINUING TO MONITOR. UNDERSTANDING IS THAT PATIENT IS TO GO HOME TOMORROW.
--- NOTE | 2019-01-29 02:18 | NUR ---
PATIENT HAS BEEN RESTLESS AND TRYING TO CLIMB OUT OF BED WITH HIS LEGS OVER THE SIDERAILS. HE WAS TAKEN TO THE RESTROOM. HE IS VERY AGITATED WHEN TRYING TO REDIRECT PATIENT. PATIENT GIVEN THICKENED WATER TO HYDRATE HIM. PATIENT REFUSES TO KEEP BLANKETS AND TAKES OFF BRIEF AND SCRUB PANTS. HE SHOWS NO SIGN OF WINDING DOWN AND BECOMES MORE AGITATED AND COMBATIVE THE LONGER HE IS RESTLESS. GEODON 15MG IM GIVEN IN LEFT BUTTOCK. PATIENT THEN BECAME COMBATIVE AND KICKED AT AND TRIED TO PUNCH THIS NURSE WHEN LAYING PATIENT BACK DOWN. HE YELLED OUT AND THREATENED TO PUNCH THIS NURSE IF HE WASN'T ALLOWED OUT OF BED. 2 OTHER NURSES CAME D/T HEARING PATIENT YELL AND KICKING. HELPED PATIENT TO GET COMFORTABLE IN BED. 3 SIDERAILS UP. PATIENT QUIETING DOWN AND RESTING MORE QUIETLY NOW. WILL CONTINUE TO MONITOR. BED ALARM ON AND BED IN LOW POSITION. PATIENT DID SIT UP ON SIDE OF BED AND DRANK 120CC OF THICKENED WATER.
[2019-01-29 09:56] VITALS: BP 102/55
--- NOTE | 2019-01-29 19:54 | NUR ---
ASSUMED CARE @ 19:15 ON 01/29/19. IN W/C WITH LAP ERIN IN PLACE. EYES CLOSED, WHEN SPOKEN TO, MOVES ARMS AND HANDS, BUT DOES NOT OPEN EYES OR RESPOND VERBALLY. HRRR, LUNGS CLEAR BUT DIMINISHED, ABD NORMOACTIVE. UNABLE TO ASSESS COGNITIVE ORIENTATION D/T DROWSYNESS.
[2019-01-29 20:11] VITALS: BP 121/56
[2019-01-30 09:08] VITALS: BP 121/56; BP 133/71
[2019-01-30] MEDS ORDERED: LOPRESSOR25 PO (09:19)
[2019-01-30] MEDS ORDERED: NORVASC5 MG PO (09:20)
[2019-01-30] MEDS ORDERED: DEPAKOTE SPRIN125 MG PO (09:21)
[2019-01-30] MEDS ORDERED: ZYPREXA 5 MG TAB5 MG PO (09:23)
[2019-01-30] MEDS ORDERED: OLANZAPINE10 M2 IM (09:23)
[2019-01-30] MEDS ORDERED: GEODON20 M1 IM (09:24)
[2019-01-30] MEDS ORDERED: ZYPREXA 5 MG TAB5 M1 PO (09:24)
[2019-01-30] MEDS ORDERED: BACITRACIN Z28.35 GM TOP (09:27)
--- NOTE | 2019-01-30 09:45 | NUR ---
SW sent updates, meds list and d/c orders to [facility]. Provided nurse with number for report. Added DA 124 C to packet.
--- NOTE | 2019-01-30 10:54 | NUR ---
ASSUMED CARE AT 0700 THIS MORNING. PT. IRRITABLE THIS MORNING, YELLING AT STAFF REFUSING TO REDIRECT. HE STARTED PUSHING THE TABLE ACROSS THE ROOM. DR. LONGORIA ON SITE AND ATTEMPTED TO REDIRECT PT. WITHOUT EFFECTIVENESS. PT. WAS GIVEN A GEODON SHOT. WHEN GIVEN THE SHOT HE YELLED NON-STOP FOR SEVERAL MINUTES. PT.'S FAMILY IS GOING TO TRANSPORT PT. TO [facility] PHONE NUMBER [phone]. REPORT WAS CALLED TO THE FACILITY. AWAITING FAMILY TO ATTORNEY AT LAW PT. FOR TRANSPORT.
--- NOTE | 2019-01-30 12:00 | NUR ---
ASSUMED CARE AT 0700 THIS MORNING. PT. IRRITABLE, YELLING, BEING BELIGERANT WITH STAFF. ATTEMPTED TO CALM PT. BUT HE WAS NOT ABLE TO BE CONTROLLED. HE RECEIVED A IM OF PASHA. HE ATE WELL FOR BREAKFAST WHEN STAFF FED HIM THE FOOD. FAMILY ARRIVED AT 1130 TO TRANSPORT PT. TO HIS NEW CARE FACILITY. ALL BELONGINGS, TRANSFER PAPERS, TRANSCRIPTS, LABS, MEDS PRESCRIPTIONS, ALL SENT WITH FAMILY. PT. TRANSFERED TO ANOTHER WHEELCHAIR AND HE LEFT WITH FAMILY MEMBERS TIMES 4. REPORT GIVEN TO NEW FACILITY.
--- NOTE | 2019-02-03 22:41 | D ---
[facility] [place] [address] DISCHARGE SUMMARY Name: DOT REBOLLEDO Room #: 518A-A [facility] IN .R.#: [id number] Admission: 01/05/19 Attend Phys: Juan Ramon Roman MD Discharge: 01/30/19 Date of : 38 Report #: [id number] THIS REPORT FOR: //name// CC: Tiffani Roman DATE OF SERVICE: 01/30/2019 ATTENDING PHYSICIAN: Johann Reza DO MENTAL TELEPATHIST AT THE TIME OF DISCHARGE: Tiffani Pastrana MD DISCHARGE DIAGNOSES: Major neurocognitive disorder, likely due to Alzheimer's disease with some behavioral disturbance, somewhat improvement. Medical comorbidities include volume depletion, hypertension, primary, in good control, anorexia, seizure disorder. DISCHARGE PLAN: Discharged to [facility]. Psychiatric and medical care to be provided by the receiving facility. The family requested modification to liberalize the patient's diet to regular foods and swallows, thin liquids. They are aware of the risks of aspiration and . DISCHARGE MEDICATIONS: Metoprolol tartrate 25 mg p.o. b.i.d. for hypertension and cardiac protection, amlodipine besylate 5 mg p.o. daily for hypertension, Depakote Sprinkles 1250 mg p.o. b.i.d., olanzapine 7.5 mg p.o. b.i.d. with 7.5 mg IM backup as well as 10 mg oral p.o. at bedtime. Geodon 15 mg q. 6 hours IM p.r.n., not to exceed 40 mg daily, bacitracin zinc applied to left forearm laceration twice per day for 10 to 14 days, cholecalciferol 1000 units oral daily for supplementation. LABORATORY DATA: Notable laboratories on this admission, most recently on 01/24/2019; CBC was within normal limits except platelet count of 122 and segmented neutrophil percentage is 75, monos percentage of 1.2, lymphocytes were low at 12.3. Chemistries most recently on 01/27/2019; sodium 142, potassium 4.0, chloride 105, bicarbonate 32, anion gap 5, BUN 40, creatinine 1.1, estimated GFR 65, glucose 104, calcium 9.2. Most recent Depakote level was 74 on 01/26/2019 and urine showed on 01/24/2019, 1+ ketones, 3+ blood, 1-9 bacteria hpf. Urine that did not trigger a culture. REASON FOR ADMISSION: Sent over from [facility] due to agitation and combativeness. HOSPITAL COURSE: The patient was admitted to the Geriatric Psych Unit. He did have a quite prolonged time getting to a regimen of work. There was a Thorazine [facility] [address] [place] [address] DISCHARGE SUMMARY Name: DOT REBOLLEDO Room #: 518A-A [facility] IN M.R.#: [id number] Admission: 01/05/19 Attend Phys: Juan Ramon Roman MD Discharge: 01/30/19 Date of : 38 Report #: [id number] trial done during the admission and about a week ago switched over to olanzapine, and it was titrated to 7.5 mg p.o. b.i.d. His Depakote level was increased to a blood level of 74 at 1250 mg p.o. b.i.d. The patient still required PRNs at times even in the morning of admission. Unfortunately, with the FDA warning of risk of /stroke with antipsychotics, long-acting injectable antipsychotic is not a good option. PHYSICAL EXAMINATION: GENERAL: At the time of discharge, the patient was somewhat pleasant at disposition. VITAL SIGNS: Temperature 36.7, pulse 94, respirations 18, BP 133/71, O2 sat 62%. MUSCULOSKELETAL: Not completely ambulatory, so essentially wheelchair bound. MENTAL STATUS EXAMINATION: A well-developed, fairly nourished male, wearing glasses, appearing his stated age. Attention impaired. Concentration impaired. Speech has abnormal spontaneity, normal ____, and normal tone. Thought process nonlinear with intermittent ideas of reference. Mood, irritable, constricted, incongruent. Reduced range. Denied SI or HI. Some helplessness, some hopelessness. Memory noted to be impaired. Insight impaired. Judgment impaired. Fund of knowledge well below average. Prognosis of this patient is guarded to poor given the need for memory care placement at the age of 78. Disease specific factors that goes along with dementia. <ELECTRONICALLY SIGNED> By: Johann Reza DO 02/03/19 [id number] Johann Reza DO /nt
== END 2019-01-30 12:04 | DRG 56 ==
LOC: ER 19:12 → EROBS 20:55 → SBH 20:55
PROVIDERS: Emergency Medicine; Internal Medicine; Psychiatry & Neurology Psychiatry; ADMIT Psychiatry & Neurology Psychiatry
DX: G30.9 Alzheimer's disease, unspecified (principal); E43 Unspecified severe protein-calorie malnutrition; F02.81 Dementia in other diseases classified elsewhere, unspecified severity, with behavioral disturbance; I10 Essential (primary) hypertension; E11.9 Type 2 diabetes mellitus without complications; G40.909 Epilepsy, unspecified, not intractable, without status epilepticus; F32.9 Major depressive disorder, single episode, unspecified; Z66 Do not resuscitate; R63.0 Anorexia; E86.9 Volume depletion, unspecified; Z90.49 Acquired absence of other specified parts of digestive tract; Z95.0 Presence of cardiac pacemaker; Z88.2 Allergy status to sulfonamides; Z79.84 Long term (current) use of oral hypoglycemic drugs; Z79.899 Other long term (current) drug therapy; Z23 Encounter for immunization
CPT/HCPCS: 10880

== ENCOUNTER 2019-01-31 08:19 | Emergency (ER) | payer OTHER ==
[~2019-01-31] VITALS: Ht 180.3 cm; Wt 77.1 kg
[~2019-01-31 08:19] MED LIST changes: +ACETAMINOPHEN500 MG PO; +ALEVE220 MG PO; +BACITRACIN Z28.35 GM TOP; +COLACE100 MG PO; +DEPAKOTE SPRIN125 MG PO; +DEPAKOTE125 MG PO; +FELODIPINE 5 MG5 M1 PO; +GEODON20 M1 IM; +LOPRESSOR25 PO; +MIRALAX17 GM PO; +NORVASC5 MG PO; +OLANZAPINE10 M2 IM; +SEROQUEL 25 MG25 M1 PO; +TUMS PO; +ZYPREXA 5 MG TAB5 M1 PO; +ZYPREXA 5 MG TAB5 MG PO; +ZYPREXA5 MG PO
[2019-01-31 12:08] VITALS: BP 128/54
== END 2019-01-31 12:08 | disposition home or self-care (01) ==
LOC: ER 08:19
DX: G30.9 Alzheimer's disease, unspecified (principal); F02.80 Dementia in other diseases classified elsewhere, unspecified severity, without behavioral disturbance, psychotic disturbance, mood disturbance, and anxiety; F91.9 Conduct disorder, unspecified; Z88.2 Allergy status to sulfonamides; I10 Essential (primary) hypertension; E11.9 Type 2 diabetes mellitus without complications; Z95.0 Presence of cardiac pacemaker

== ENCOUNTER 2019-02-12 19:10 | Inpatient (IN) | payer OTHER ==
[~2019-02-12] VITALS: Ht 180.3 cm; Wt 81.6 kg
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
[2019-02-12 19:12] VITALS: BP 123/45
[2019-02-12 21:05] LABS: BASOPHILS 0.2 % (0.0-2.0); EOSINOPHILS 0.1 % (0.0-3.0); HEMATOCRIT 36.3 % (42.0-52.0); HEMOGLOBIN 11.7 gm/dL (14.0-18.0); LYMPHOCYTES 3.3 % (24.0-44.0); MCH 31.3 pg (26.0-34.0); MCHC 32.2 g/dL (28.0-37.0); MONOCYTES 9.8 % (1.0-8.0); PLATELET COUNT 269 thou/uL (150-400); POLYS 86.6 % (36.0-66.0); RBC 3.74 mil/uL (4.50-6.00); RDW 14.8 % (10.5-14.5); WBC 18.4 thou/uL (4.0-11.0)
[2019-02-12 21:17] LABS: ANION GAP 5 mmol/L (7-16); BUN 38 mg/dL (7-18); CALCIUM 9.1 mg/dL (8.5-10.1); CHLORIDE 102 mmol/L (98-107); CO2 30 mmol/L (21-32); CREATININE 1.3 mg/dL (0.7-1.3); GLUCOSE 130 mg/dL (74-106); POTASSIUM 4.8 mmol/L (3.5-5.1); SODIUM 137 mmol/L (136-145)
[2019-02-12 21:21] LABS: ALBUMIN 2.3 g/dL (3.4-5.0); LIPASE 140 U/L (73-393); SALICYLATE < 2.8 mg/dL (2.8-20.0); SGOT 49 U/L (15-37); SGPT 28 U/L (30-65); TOTAL BILIRUBIN 0.6 mg/dL (<0.1-1.0); TOTAL PROTEIN 6.3 g/dL (6.4-8.2)
[2019-02-12 22:07] LABS: URINE BILIRUBIN NEGATIVE (Negative); URINE BLOOD NEGATIVE (Negative); URINE CLARITY CLEAR; URINE COLOR YELLOW; URINE GLUCOSE-RANDOM* NEGATIVE (Negative); URINE KETONES NEGATIVE (Negative); URINE LEUKOCYTES-REFLEX NEGATIVE (Negative); URINE NITRITE-REFLEX NEGATIVE (Negative); URINE PROTEIN (DIPSTICK) NEGATIVE (Negative); URINE SPECIFIC GRAVITY 1.025 (1.005-1.035); URINE UROBILINOGEN 0.2 E.U./dl (0.2-1.0)
[2019-02-12 22:17] LABS: AMP/METHAMP Negative (Negative); BARBITURATES Negative (Negative); BENZODIAZEPINES Negative (Negative); COCAINE Negative (Negative); METHADONE Negative (Negative); OPIATES POSITIVE (Negative); PCP Negative (Negative)
[2019-02-12 22:28] VITALS: BP 136/59
--- NOTE | 2019-02-13 00:49 | NUR ---
admitted to room, family only stayed for a few minutes then needed to go, and dtr will be back in the morning. he is keeping his eyes closed, no answering qustions. he is continually moving, in small amounts. some shaking/ and rocking back and forth. he is controlled at this time with the geoden being given just before arrival to [facility]. careplan started.
--- NOTE | 2019-02-13 03:54 | NUR ---
resting better after getting iv fentanyl for pain control. he is unable to communicate his pain level. continues on iv fluids.
[2019-02-13 04:15] VITALS: BP 109/47
[2019-02-13 08:04] VITALS: BP 113/55
[2019-02-13] MEDS ORDERED: CHLORPROMAZINE25 M3 PO (08:51)
[2019-02-13] MEDS ORDERED: ASPERCREME1 EACH TOP (08:54)
[2019-02-13] MEDS ORDERED: MORPHINE S100 MG/5 M PO (08:56)
[2019-02-13] MEDS ORDERED: ZYPREXA 5 MG TAB5 MG PO (09:00)
[2019-02-13 11:00] LABS: ABSOLUTE NEUTROPHILS 12.6 thou/uL (1.4-8.2); BASOPHILS 0.5 % (0.0-2.0); EOSINOPHILS 0.1 % (0.0-3.0); HEMOGLOBIN 10.4 gm/dL (14.0-18.0); LYMPHOCYTES 4.8 % (24.0-44.0); MCH 31.7 pg (26.0-34.0); MCHC 32.6 g/dL (28.0-37.0); MCV 97.2 fL (80.0-100.0); MONOCYTES 10.6 % (1.0-8.0); PLATELET COUNT 227 thou/uL (150-400); RBC 3.29 mil/uL (4.50-6.00); RDW 15.3 % (10.5-14.5)
[2019-02-13 11:03] LABS: CALCIUM 8.3 mg/dL (8.5-10.1); CREATININE 1.1 mg/dL (0.7-1.3); POTASSIUM 4.2 mmol/L (3.5-5.1)
--- NOTE | 2019-02-13 11:41 | NUR ---
PT THREW TELE MONITOR AT [facility]. WILL LEAVE OFF FOR NOW.
--- NOTE | 2019-02-13 13:33 | NUR ---
INITIAL ASSESSMENT: Received consult due to pt being admitted from a memory care unit. YOSHI reviewed chart and spoke with nursing and attending physician. Pt was admitted due to pnemonia/agressive behaviors. Pt was recently on the [facility] unit and discharged to [facility] on 01/30. YOSHI spoke with YOSHI Pacheco at [facility], who states pt was on service with [facility]. YOSHI spoke with Irais at [facility] ( ) to notify of pt's hospitalization. Hospice services were revoked prior to admission to [facility]. Pt was on hospice for advanced dementia. YOSHI left voice message for pt's , Oksana, to provide update and confirm discharge plan. YOSHI is following to assist as needed with discharge planning.
--- NOTE | 2019-02-13 14:38 | NUR ---
DISCHARGE PLANNING. PATIENT IS A RESIDENT AT [facility]. PLAN IS FOR PATIENT TO RETURN TO [facility] ONCE MEDICALLY READY. CLINICAL UPDATES FAXED TO [facility], VERIFIED RECEIVED. FOLLOWING.
--- NOTE | 2019-02-13 16:50 | NUR ---
PT TURNED SELF IN BED TODAY HOWEVER REMAINED UNCOOPERATIVE AND REFUSED MOST FOOD. PT DID TAKE SOME PILLS IN THICKEND WATER. REMOVE CONDOM CATH AND START STRAIGHT CATH BID. WILL CONTINUE TO ASSESS.
--- NOTE | 2019-02-13 17:01 | EKG ---
[address] [place] [address] ELECTROCARDIOGRAM REPORT Name: DOT REBOLLEDO Room #: 361-P ADM IN M.R.#: [id number] Admission: 02/12/19 Attend Phys: Royal Pichardo MD Discharge: Date of : 39 Report #: [id number] THIS REPORT FOR: //name// [facility] ED Test Date: 2019-02-12 Test Time: 20:11:44 Pat Name: DOT REBOLLEDO Department: Room: 361 Gender: M Inventory Worker: GATITO : 1940 Requested By: Estuardo Linda Order Number: [id number] MD: Robbin Sutherland Measurements Intervals [place] Rate: 87 P: 47 [place]: 172 QRS: 74 QRSD: 144 T: 31 QT: 378 QTc: 455 Interpretive Statements Sinus rhythm Right bundle branch block Baseline wander in lead(s) V1,V2 Compared to ECG 01/14/2019 16:04:36 Atrial-paced complex(es) or rhythm no longer present Electronically Signed On 02-13-2019 17:01:16 CATIA DESIGNER by Robbin Sutherland [email or web address] <ELECTRONICALLY SIGNED> By: Robbin Sutherland MD, FAC 02/13/19 1701 10 10 Robbin Sutherland MD, [facility] /EPI
[2019-02-13 20:20] VITALS: BP 110/61
--- NOTE | 2019-02-14 04:46 | NUR ---
ASSUMED PT CARE AROUND 1900. PT IS CONFUSED. HE CAN BE RESTLESS, IMPULSIVE, AND COMBATIVE AT TIMES. HE SLEPT OFF AND ON DURING THE NIGHT. HE IS MOSTLY RESTLESS WHEN HE NEEDS TO URINATE. PT ATE PART OF HIS DINNER LATE THIS EVENING. HE WAS COOPERATIVE WITH TAKING HIS BEDTIME MEDICATIONS. BLADDER SCANNED AND STRAIGHT CATHED ONCE ORDERED DUE TO PT HAVING URINARY RETENTION. PT HAS BEEN RESTING MORE CALMLY SINCE BEING CATHED. FALL PRECAUTIONS IN PLACE. PROGRESSING SLOWLY TOWARD POC GOALS. WILL CONTINUE TO MONITOR FURTHER.
[2019-02-14 05:02] LABS: HEMOGLOBIN 11.4 gm/dL (14.0-18.0); MCH 31.7 pg (26.0-34.0); MCHC 32.5 g/dL (28.0-37.0); MCV 97.5 fL (80.0-100.0); RBC 3.59 mil/uL (4.50-6.00); RDW 14.9 % (10.5-14.5); WBC 13.5 thou/uL (4.0-11.0)
[2019-02-14 05:14] LABS: CALCIUM 8.3 mg/dL (8.5-10.1); CREATININE 0.8 mg/dL (0.7-1.3); MAGNESIUM 1.8 mg/dL (1.8-2.4); POTASSIUM 3.4 mmol/L (3.5-5.1)
[2019-02-14 07:59] VITALS: BP 124/69
--- NOTE | 2019-02-14 13:14 | NUR ---
ASSUMED CARE OF PT AT 0700. VERY CONFUSED. RESTLESS. SEVERAL ATTEMPTS TO GET OUT OF BED BUT EASILY REDIRECTABLE. COMBATIVE AT TIMES. COMPLIANT WITH MEDS. REFUSES GOWN OR BRIEFS - REPEATEDLY REMOVES. AT BEDSIDE FOR PART OF DAY. SMALL APPETITE. INCONTINENT. IV FLUIDS AND ABX INFUSING PER ORDER. WILL CONT TO MONITOR FOR RETENTION. VITALS STABLE. CXR SHOWING IMPROVEMENT. WBC IMPROVING. PT PROGRESSING TOWARD POC GOALS.
--- NOTE | 2019-02-14 14:09 | NUR ---
YOSHI reviewed chart and spoke with nursing and attending physician. SW met with pt's at bedside. Pt's states that she is under the impression that pt is going to the [facility] unit prior to returning to [facility]. YOSHI contacted attending physician and psych. shoe lay out planner to contact the facility to determine if they are able to accept pt directly back since psych is seeing him on the acute level. YOSHI is following to assist as needed with discharge planning.
[2019-02-14 21:05] VITALS: BP 144/70
--- NOTE | 2019-02-15 02:57 | NUR ---
ASSESSMENT: PT REMAIN ALERT TO SELF ONLY. DOES NOT FOLLOW SIMPLE COMMANDS. VSS, AFEBRILE. GEODON GIVEN WITH MINIMAL EFFECT. PT WAS INCONTINENT TO URINE SEVERAL TIMES DURING THE NIGHT. BED LINENS CHANGED TWICE. PT SNAPPED HIS IV OUT. DID TAKE ALL SCHEDULED MEDS CRUSHED AND MIXED IN ICE CREAM. PT WAS FED BY THE INTERIOR SYSTEMS CARPENTER, TOLERATED WELL. STATUS OF NO CODE. MED SURG STATUS. SLOW PROGRESS TOWARDS DC GOALS, WILL CONTINUE TO MONITOR.
[2019-02-15 04:57] VITALS: BP 119/59
[2019-02-15 08:33] VITALS: BP 129/64
--- NOTE | 2019-02-15 10:33 | NUR ---
SW reviewed chart and spoke with nursing and attending physician. Psych following. Awaiting input from [facility] to determine if pt qualifies to go to [facility] prior to returning to [facility]. SW is following to assist as needed with discharge planning.
--- NOTE | 2019-02-15 16:38 | NUR ---
PT ALERT ALERT TO ONLY. COMBATIVE, AND AGRESSIVE AT TIMES TODAY. PRN MEDICATIONS GIVEN WITH SOME RELEIF. PT TOLERATES MEDS. POOR APPETITE TODAY. AND DAUGHTER AT BEDSIDE THOUGHTOUT THE SHIFT. POSSIBLE PLANS TO DISCHARGE TOMORROW. WILL CONTINUE TO MONITOR.
[2019-02-15 19:45] LABS: ALBUMIN 2.1 g/dL (3.4-5.0); CALCIUM 8.7 mg/dL (8.5-10.1); CREATININE 0.8 mg/dL (0.7-1.3); POTASSIUM 3.8 mmol/L (3.5-5.1); TOTAL BILIRUBIN 0.6 mg/dL (<0.1-1.0); TOTAL PROTEIN 5.7 g/dL (6.4-8.2)
[2019-02-15 19:46] VITALS: BP 146/56
--- NOTE | 2019-02-16 04:39 | NUR ---
PATIENT ALERT AND ORIENTED [place] ONLY. CONFUSED AND RESTLESS. BEGINNING OF SHIFT WAS TRYING TO GET OUT OF BET BUT WAS EASILY REDIRECTED. MEDS GIVEN AND SETTLED DOWN SOMEWHAT. HAS PACEMAKER. ARRIVED ON UNIT FROM 3W AT 1945 VIA CART. ACCOMPANIED BY 3W PERSONEL. PULLED IV TUBING FROM BAG. IV IN FRA WAS INFILTRAED. PUT 20G IN L WRIST WITH LITTLE TROUBLE. HAS BRUISES ALL OVER BODY. SLEPT NONE THIS SHIFT. DENIES PAIN.
--- NOTE | 2019-02-16 14:29 | NUR ---
ASSUMED CARE OF PT AT 0700. DOCTOR WILL BE DISCONTINUING ALL IV MEDS DUE TO PT PULLING OUT IV TWO TIMES. PATIENT AGITATION CONTROLLED BY MEDS, SEE EMAR. PT IS ON ASPIRATION PRECAUTIONS. PT IS INCONTINENT. BED IS IN A LOW PISITION AND ALL FOUR RAILS ARE UP FOR SAFETY PRECAUTIONS. FAMILY IS AT BEDSIDE. CALL LIGHT IS WITHIN REACH. WILL CONTINUE TO MONITOR THE PT.
[2019-02-16 20:45] VITALS: BP 141/51
--- NOTE | 2019-02-17 02:11 | NUR ---
ASSUMED PT CARE ON 02/16/19. UPON ENTERING THE ROOM THE PT WAS SOILED WITH URINE AND BM. PT IS MUMBLING WORDS THAT I CAN'T UNDERSTAND. WHEN ADMINISTERING MEDICATION PT TOOK WITH PERSUASION. PT WAS RESISITENT/COMBATIVE WHEN TRYING TO DO A BED CHANGE AND A BED BATH. PT DOES NOT LIKE THE WIPES SO WE USED WARM WASH CLOTHS. PT IS INCONTINENTOF BOWEL AND BLADDER. PT HAS HAD TWO BOWEL MOVEMENTS SINCE THE BEGINING OF THE SHIFT. WHEN ENTERING THE ROOM THE PT HAD URINE ON THE FLOOR AROUND AND UNDER THE BED. BED IS IN LOW POSITION WITH BED ALARM ON. WILL CONTINUE TO MONITOR.
[2019-02-17 06:10] VITALS: BP 111/86
[2019-02-17 07:23] VITALS: BP 122/74
--- NOTE | 2019-02-17 07:42 | NUR ---
PT ALERT,IMPULSIVE AND COMBATIVE.PT HAD EPISODES OF INCONTINENCE BUT REFUSED TO BE CLEANED UP.PERICARE AND ZGUARD APPLIED WITHEACH INCONTINENCE.MULTIPLE BRUISING NOTED ON HIS WHOLE BODY UP TO HIS BUTTOCK.PER REPORT,PT DOESN'T HAVE AN IV ACCESS,CONTROL SYSTEMS DESIGNER ON DUTY NOTIFIED,ORDER NOTED TO DC ZOSYN AND IVF AND START PT ON ZITHROMAX DAILY.REPORT TO AM NURSE.
--- NOTE | 2019-02-17 10:36 | NUR ---
ASSUMED CARE OF PT AT 0700. PT IS COMBATIVE WHEN CHANGING LINEN AND GOWN. CRUSHED ALL MORNING MEDS AND GAVE TO PT IN PUDDING. APPLIED NEW LIDOCAINE PATCHES TO PTS L SHOULDER AND LOWER BACK. PT REFUSES TO KEEP ON GOWN AND BRIEF. FALL PRECAUTIONS ARE IN PLACE PT TRIES TO CLIMB OUT OF THE BED. ALL MEDS ARE NOW PO, SEE EMAR. SPOKE TO PTS . HOURLY ROUNDING IS BEING DONE ON PT. WILL CONTINUE TO MONITOR THE PT.
[2019-02-17 17:13] VITALS: BP 134/54
[2019-02-17 20:45] VITALS: BP 142/75
--- NOTE | 2019-02-18 05:55 | NUR ---
ASSUMED PT CARE ON 02/17/19. PT IS DISORIENTED X 4. PT IS COMBATIVE WHILE TRYING TO PERFORM PT CARE. PT GOT A BED BATH AND A FULL BED CHANGE. PT WAS ADMINISTERED ORAL MEDICATION. PT SET OFF BED ALARM MULTIPLE (<8) TIMES DURING THE SHIFT. PT TENDS TO KICK HIS LEGS OVER THE SIDE OF THE RAILS. BED ALARM IS ON AND BED IS IN LOW POSITION. KNEES ELEVATED BECAUSE PT TRIES TO CLIM OUT OF THE BED AT THE BOTTOM. WILL PREM TO MONITOR.
--- NOTE | 2019-02-18 07:48 | NUR ---
ASSUMED PT CARE ON 02/17/19. PT IS DISORIENTED X 4. PT IS INCONTINENT OF BOWEL AND BLADDER. PT DOES NOT LIKE THE WIPES AND HAS A CALMER DISPOSITION WHEN BEING CLEANED WITH WARM WATER AND WASHCLOTHS. PT IS COMBATIVE WHILE TRYING TO PERFORM PT CARE. PT RECEIVED TWO BED BATHS DURING THE SHIFT. TWO FULL BED CHANGES WERE DONE WELL. PT WAS ADMINISTERED ORAL MEDICATION. PT SET OFF BED ALARM MULTIPLE TIMES DURING THE SHIFT (<8 TIMES). PT TENDS TO KICK HIS LEGS OVER THE SIDE OF THE RAILS. BED ALARM IS ON AND BED IS IN LOW POSITION. PT TAKES HIS GOWN AND COVERS OFF AFTER BEING DRESSED MULTIPLE TIMES. PT TELLS YOU TO STOP PUTTING ITEMS ON HIM TO COVER UP. WILL CONTINUE TO MONITOR.
[2019-02-18 09:02] VITALS: BP 132/56
--- NOTE | 2019-02-18 15:18 | NUR ---
ASSUMED CARE OF PT AT 0700. PT IS COMBATIVE AND ANXIOUS. PT IS INCONTINENT AND WILL NOT KEEP ON A GOWN, BRIEF OR BLANKET. PTS LUNGS ARE CLEAR AND BREATHING IS LABORED. MEDS ARE CRUSHED AND GIVEN IN PUDDING, TOLERATED WELL. BED ALARM IS ON. FALL PRECAUTIONS ARE IN PLACE. WILL CONTINUE TO MONITOR THE PT.
[2019-02-18 19:33] VITALS: BP 170/54
--- NOTE | 2019-02-19 06:23 | NUR ---
PATIENT AWAKE OFF AND ON DURING NIGHT. AGITATED ABD IRRITATED AT TIMES. TRYING TO GET OUT OF BED. DENIES PAIN. IM OLANZAPINE GIVEN X1 FOR COMBATIVENESS.
[2019-02-19 08:18] VITALS: BP 146/64
--- NOTE | 2019-02-19 13:11 | NUR ---
FAXED CLINICAL UPDATE TO [facility] DI SPOKE WITH ANA IN ADM SHE RECEIVED UPDATE. DP TO FOLLOW.
--- NOTE | 2019-02-19 15:21 | NUR ---
CM CALLED OVER TO [facility] THIS AM TO SEE IF/WHO THEY WOULD HAVE OVER TO DO ONSIGHT. CM SPOKE MICHAEL MUIR AND BRE DON AND BIOINFORMATICS SCIENTIST. UPDATED CLINICAL INFO SENT TO THEM FOR REVIEW. PSYCH PROG NOTES INCLUDED. THEY INDICATED THAT THEY FELT THAT THEY STILL WEREN'T COMFORTABLE TAKING PT BACK IN HIS CURRENT CONDITION. THEY INDICATED THAT THEY AREN'T ABLE TO ADMINISTER IM MEDS AT THE FACLITY. CM CONVEYED THIS TO HOSPITALIST AND HE INDICATED THAT HE WANTED SPECIFICS ON WHAT THEY NEED/WANT DONE AND THAT HE FEELS THAT THE FACILITY SHOULD BE REPORTED FOR ABANDONMENT. CM TO DISCUSS WITH CM GAS TRANSFER OPERATOR. CM TO FOLLOW INDICATED WITH DC PLANNING.
[2019-02-19 15:54] VITALS: BP 140/66
--- NOTE | 2019-02-19 16:49 | NUR ---
RECEIVED VOICEMAIL FROM JEVON FROM [facility] WITH QUESTIONS ABOUT THIS PT. TRIED TO RETURN HER CALL BUT HAD TO LEAVE A VOICEMAIL.
--- NOTE | 2019-02-19 16:55 | NUR ---
RECEIVED CALL BACK FROM JEVON FROM [facility] AND CONDITION UPDATE PROVIDED TO HER. SHE WANTS TO BE KEPT INFORMED OF THE DC DISPOSITION ONCE IT IS KNOWN.
--- NOTE | 2019-02-19 18:45 | NUR ---
PT VERY SLEEPY ALL SHIFT. TURNED Q 2HRS. SM LOOSE BM THIS AFTERNOON. DTR HERE AT DINNERTIME AND PT AWAKENED ENOUGH HE WAS ABLE TO EAT AND TAKE SOME MEDS. AM MEDS HELD PT TOO SEDATED. DR. HATCH HERE THIS AFTERNOON AND ADJUSTED MEDS.
[2019-02-20 04:15] VITALS: BP 126/54
[2019-02-20 08:00] VITALS: BP 142/48
--- NOTE | 2019-02-20 08:18 | NUR ---
Assumed pt care at 1900. Pt alert to self only,drowsy. Took HS meds without problems with applesauce. No complain of pain on assessment. Pt is incontinent of B&B, having loose stools zguard applied to periarea with each episode of incontinence. Fall precautions implemented.
[2019-02-20 16:55] VITALS: BP 150/57
--- NOTE | 2019-02-20 18:04 | NUR ---
THIS HS SPOKE WITH FAMILY AT BEDSIDE REGARDING PT NOT WEARING BRIEFS IN BED 24/7. FAMILY IS UPSET THAT HE IS NOT ABLE TO WEAR THEM IN BED 24/7 AND WANTS TO TALK TO THE DR TO REQEST THIS BE ORDERED FOR THE PATIENT'S DIGNITY. FAMILY UPSET THAT PT IS EXPOSED WHEN HE DOES NOT KEEP THE SHEETS ON HIM AND IS NOT WEARING A BREIF. PT IS INCONTINENT OF B&B AND HAS REDNESS NOTED TO BOTTOM AND RAYA AREA PER NURSING ASSESSMENT/CHARTING. USING ZGUARD IN THESE AREAS. I INFORMED THE FAMILY OF THE RISK OF SKIN BREAKDOWN AND HOSPITAL PROTOCOL OF NOT HAVING BED BOUND PATIENTS WEAR BREIFS IN BED 24/7 BUT THEY DO NOT WANT THE PATIENT EXPOSED AND WANT HIM IN BREIFS AT ALL TIMES. THEY ALSO WANT TO HAVE MORE THAN 3 AVAILABLE AT A TIME. HS TAKLKED WITH RASHMI STRONG TO CALL PCP AND ASK IF THEY ARE OKAY WITH MAKING THE EXECPTION FOR THE PATIENT TO WEAR THEM 24/7 PER FAMILY REQUEST.
[2019-02-20 19:31] VITALS: BP 169/45
--- NOTE | 2019-02-20 19:45 | NUR ---
ASSUMED CARE OF PATIENT AT 0715, PATIWENT HAS MOMENTS OF BEING ALERT WITH CONFUSION. PATIENT DID TAKE ALL PO MEDS THIS SHIFT. PATIENT HAD MOMENTS OF BEING AGITATED AND COMBATIVE, RECEIVED IM DOSE OF ZYPREXA X 1 THIS SHIFT. PATIENT HAS BEEN INCONT. OF B/B. PATIENT HAS REDNESS TO BUTTOCKS, Z-GUARD AND BARRIER CREAM APPLIED AFTER EACH EPISODE OF INCONTINENCE. DR BLUM HERE TO SEE THE PATIENT AND PUT CONSULT IN FOR HOSPICE EVAL./DR OCONNOR. SHE ALSO DISCONTINUED MOST OF THE MEDS, AND PUT ORDERS IN FOR COMFORT MEDS. FAMILY AT BEDSIDE THIS EVENING AND HAD COMPLIANTS ABOUT PATIENT WEARING BRIEFS IN BED, THIS RN INFORMED FAMILY OF POLICY, THIS RN NOTIFIED HOUSE SUP./IKER WHO CAME AND SPOKE WIT THE FAMILY. THIS RN CALLED DR BLUM TO OBTAIN ORDER TO WEAR BRIEFS IN BED 24 HRS DAILY DUE TO PATIENT KEEP TAKING COVERS OFF MOST OF THE TIME. DR OCONNOR RETUNED CALL AT THE END OF THE SHIFT, HE WILL SEE THE PATIENT IN AM, RECEIVED ORDERS FOR SEROQUEL 50MG AT HS AND MORPHINE SCHEDULED QID AND LEAVE PRN ORDER IN PLACE. DR OCONNOR ALSO RESTARTED DEPAKOTE 1250MG BID TO RESUME AT HS TONIGHT. NO IV ACCESS. WILL CONTINUE TO MONITOR.
--- NOTE | 2019-02-21 04:17 | NUR ---
Assumed pt care at 1900. Pt drowsy alert to self only.VSS.Incontinent of B&B, pericare done and mositure barrier applied with every episode of incontinence. Took HS meds w/o problems,been resting quietly through the night without behavior issues. Fall precautions in place, will continue to monitor pt.
[2019-02-21 05:13] VITALS: BP 98/51
[2019-02-21 08:22] VITALS: BP 103/48
--- NOTE | 2019-02-21 16:26 | NUR ---
CM CALLED AND SPOKE WITH PT'S DTR THIS AM AND SHE INDICATED THAT HE MOM HAD SPOKEN WITH DR. OCONNOR AND THEY WERE INTERESTED IN HAVING PT ASSESSED FOR HOSPICE HOUSE ADMISSION. SHE ASKED THAT LIST BE PROVIDED OF ALL HOSPICE HOUSES AND THEIR ADDRESSES AND STATED THAT HER MOTHER WOULD BE AT HOSPITAL AT 10:30. FAMILY WASNT' ON UNIT UNTIL 1:00 BUT LIST WAS PROVIDED AND DISCUSSED WITH THEM. CM ASKED THAT THEY LOOK IT OVER AND LET CM KNOW WHICH HOSPICE HOUSE THEY WERE INTERESTED IN HAVING COME ASSESS. CM CALLED BOTH DTR AND SPOUSE TO FOLLOW UP ABOUT WHO TO CALL TO ASSESS AND CM HASN'T RECEIVED A RETURN CALL OF THIS NOTE. CM TO FOLLOW INDICATED WITH DC PLANNING.
[2019-02-21 17:43] VITALS: BP 128/53
[2019-02-21 19:57] VITALS: BP 185/60
--- NOTE | 2019-02-21 20:04 | NUR ---
ASSUMED CARE OF PATIENT AT 0715, PATIENT LETHARGIC, NOT MOVING AROUND IN BED. NO S/S OF PAIN. O2 SATS IN THE 80'S, O2 AT 2 LITERS/NC IN PLACE. NO MEDS GIVEN DUE TO BEING LETHARGIC. DR OCONNOR HERE THIS AM, STATES OK TO NOT GIVE MEDS OR TRYING TO MAKE HIM EAT, JUST COMFORT ONLY. FAMILY HERE AT BEDSIDE AN AWARE OF PATIENT'S CONDITION. NO URINE OR BM THIS SHIFT. REPORT GIVEN TO EDUARDA/MARKETING SUPPORT COORDINATOR AND SHE IS AWARE OF NOTIFYING THE FAMILY IF PATIENT APPEARS TO BE DECLING. WILL CONTINUE TO MONITOR. ORDER FOR COMFORT ONLY MEASURES.
--- NOTE | 2019-02-22 02:48 | NUR ---
ASSUMED CARE OF PATIENT AT SHIFT CHANGE. ASSESSMENT CHARTED. MEDICATIONS HELD PER DOCTORS ORDERS DUE TO DROWSINESS/ASPIRATION RISK. VS ARE ELEVATED RELATED TO RESTLESSNESS. PATIENT IS TACHYCARDIC AND HAS BOUNDING PULSES. O2 SATS ARE IN 80'S ON 2L. HEAD IS ELEVATED TO 90 DEGREES AND PATIENT IS BEING MONITORED CLOSELY FOR CHANGES. PATIENT HAS A "GURGLY" COUGH WITH POOR COUGH EFFORT. SUCTION WAS ATTEMPTED BUT PATIENT APPREARS TO HAVE SPUTUM IN THROAT. PATIENT HAS COURSE/CRACKLY, NOTED MORE EXPIRATORY. PATIENT IS ON COMFORT MEASURES AND WILL BE CONTINUED TO BE MONITORED FREQUENTLY. PATIENT IS CLOSE TO NURSE STATION. WILL CONTINUE TO MONITOR AND FOLLOW POC, BED ALARM ON, FALL PRECAUTIONS IN PLACE.
[2019-02-22 04:19] VITALS: BP 156/26
[2019-02-22 08:45] VITALS: BP 120/50
--- NOTE | 2019-02-22 15:38 | NUR ---
REFERRAL WAS SENT TO HOSPICE PER FAMILY REQUEST. NICHELLE NURSE ASSESSED PT ON SITE AT 1400. SHE INDICATED THAT THEY ARE ABLE TO ACCEPT PT. AMBULANCE TRANSPORT ARRANGED FOR 1800. NURSE GIVEN NUMBER FOR REPORT. OUT OF THE HOSPITAL DNR SIGNED. NO OTHER CM INTERVENTION INDICATED. CASE CLOSED.
--- NOTE | 2019-02-22 16:36 | NUR ---
CALLED HOSPICE HOUSE AND SPOKE WITH BOUCHRA AT THIS TIME. GAVE REPORT. PT TO LEAVE BY AMBULANCE AT 6:00 PM FAMILY AT BEDSIDE.
[2019-02-22 17:00] VITALS: BP 107/49
--- NOTE | 2019-02-22 18:39 | NUR ---
PT RESTING QUIETLY IN BED PT RELAXED AND SLEEPING. FAMILY AT BEDSIDE.
--- NOTE | 2019-02-22 20:27 | NUR ---
AMBULANCE CAME AT APPROX 1950 AND PICKED PT UP IN THE COMPANY OF [facility].PT LEFT WITH ALL HIS PERSONAL BELONGINGS.
== END 2019-02-22 19:50 | disposition hospice, home (50) | DRG 871 ==
LOC: ER 19:10 → 3W 22:15 → 4S 22:15 → EROBS 22:15 → 3W 23:26 → 4S 02-15 18:22
PROVIDERS: Emergency Medicine; Psychiatry & Neurology Addiction Medicine; ADMIT Internal Medicine
DX: A41.9 Sepsis, unspecified organism (principal); G92 Toxic encephalopathy; J18.9 Pneumonia, unspecified organism; S32.059A Unspecified fracture of fifth lumbar vertebra, initial encounter for closed fracture; F02.81 Dementia in other diseases classified elsewhere, unspecified severity, with behavioral disturbance; E46 Unspecified protein-calorie malnutrition; I10 Essential (primary) hypertension; E11.9 Type 2 diabetes mellitus without complications; G30.9 Alzheimer's disease, unspecified; E86.0 Dehydration; D72.829 Elevated white blood cell count, unspecified; I49.5 Sick sinus syndrome; R41.0 Disorientation, unspecified; R13.10 Dysphagia, unspecified; G40.409 Other generalized epilepsy and epileptic syndromes, not intractable, without status epilepticus; R29.6 Repeated falls; Z68.25 Body mass index [BMI] 25.0-25.9, adult; Z95.0 Presence of cardiac pacemaker; Z88.2 Allergy status to sulfonamides; W18.39XA Other fall on same level, initial encounter; Y93.89 Activity, other specified; Y92.89 Other specified places as the place of occurrence of the external cause; Y99.8 Other external cause status; T14.8XXA Other injury of unspecified body region, initial encounter
CPT/HCPCS: 10102; 10779; 10879